=== PATIENT | male | born 1985 | race Two or more races ===

== ENCOUNTER 2021-02-20 01:46 | Inpatient (IN) | payer SELFPAY ==
[~2021-02-20] VITALS: Ht 177.8 cm; Wt 104.8 kg
--- NOTE | 2021-02-20 02:05 | NUR ---
PATIENT BIBRA 89 FROM HOME FOR C/O ABD PAIN AND HEMATURIA. PATIENT IS A/O X 4, RR EVEN AND UNLABORED, NO SOB NOTED. PATIENT CONNECTED TO CARDIAC AND POX MONITOR.
--- NOTE | 2021-02-20 02:25 | NUR ---
at bed side
[2021-02-20] MEDS ORDERED: ONDANSETRON HCL/PF 4 MG/2 ML VIAL IVP ONE (02:30)
[2021-02-20] MEDS ORDERED: IV NS 0.9% 1,000 ML BAG IV ONE (02:30)
[2021-02-20] MEDS ORDERED: MORPHINE SULFATE INJ 2 MG/ML DISP.SYRIN IV ONE (02:30)
[2021-02-20] MEDS ORDERED: MORPHINE SULFATE INJ 4 MG/ML DISP.SYRIN ONE (02:36)
[2021-02-20] MEDS ORDERED: ONDANSETRON HCL/PF 4 MG/2 ML VIAL ONE (02:36)
[2021-02-20 03:07] LABS: BASOPHILS % (AUTO) 0.3 % (0.0-2.0); EOSINOPHILS % (AUTO) 0.7 % (0.0-6.0); HEMATOCRIT 37 % (39-51); HEMOGLOBIN 13.1 g/dL (13.5-17.5); LYMPHOCYTES # (AUTO) 1.7 K/uL (0.8-4.8); LYMPHOCYTES % (AUTO) 23.7 % (20.0-44.0); MEAN CORPUSCULAR HGB CONC 35 g/dl (31.0-36.0); MEAN CORPUSCULAR VOLUME 91 fL (80-96); MONOCYTES # (AUTO) 1.1 K/uL (0.1-1.30); NEUTROPHILS # (AUTO) 4.4 K/uL (1.8-8.9); NEUTROPHILS % (AUTO) 60.3 % (43.0-81.0); PLATELET COUNT (AUTO) 230 K/uL (150-450); RED BLOOD CELL COUNT(AUTO) 4.07 MIL/uL (4.5-6.0); WHITE BLOOD COUNT (AUTO) 7.2 K/uL (4.3-11.0)
[2021-02-20 03:21] LABS: CALCIUM, SERUM 7.7 mg/dL (8.5-10.1); CREATININE 1.1 mg/dL (0.6-1.3); POTASSIUM 2.9 mmol/L (3.5-5.1)
[2021-02-20] MEDS ORDERED: POTASSIUM CHLORIDE 20 MEQ TAB.PRT.SR PO ONE ×2 (03:30→03:36)
[2021-02-20] MEDS ORDERED: POTASSIUM CL. PREMIX PERIPHER. 100 ML ONE (03:36)
[2021-02-20] MEDS: POTASSIUM CL. PREMIX PERIPHER. 50 ML IV SCH ×2 (03:58→04:32)
[2021-02-20] MEDS ORDERED: IOHEXOL-300 100 ML VIAL IV ONE (04:34)
[2021-02-20 04:43] LABS: BILIRUBIN,URINE NEGATIVE (NEGATIVE); COLOR,URINE YELLOW (YELLOW); LEUKOCYTE ESTERASE ,URINE LARGE (NEGATIVE); NITRITE, URINE NEGATIVE (NEGATIVE); PH,URINE 6.5 (5.0-8.0); PROTEIN,URINE NEGATIVE (NEGATIVE); UGLUCOSE NEGATIVE (NEGATIVE)
--- NOTE | 2021-02-20 04:48 | NUR ---
PATIENT TAKEN TO CT
[2021-02-20] MEDS ORDERED: CEFTRIAXONE 1GM BAG (ER ONLY) 1 GM/50 ML PIGGYBACK IV ONE (05:00)
--- NOTE | 2021-02-20 05:30 | NUR ---
BAG 2 OF POTASSIUM GIVEN
[2021-02-20] MEDS ORDERED: CEPH500T PO (06:02)
[2021-02-20 06:27] LABS: BACTERIA,URINE None seen /HPF (None Seen); RBC,URINE 0-2 /HPF (0-2); SQUAMOUS EPITHELIAL CELL,UR None Seen /HPF (None Seen); WBC,URINE TOO NUMEROUS TO COUN /HPF (0-3)
[2021-02-20] MEDS ORDERED: CEFTRIAXONE 1GM BAG (ER ONLY) 50 ML IV ONE (06:49)
[2021-02-20 07:26] LABS: EOSINOPHILS % (MANUAL) 2 % (0-4); LYMPHOCYTES % (MANUAL) 21 % (16-48); MONOCYTES % (MANUAL) 17 % (0-11.0); NEUTROPHILS % (MANUAL) 60 (42-76)
--- NOTE | 2021-02-20 08:02 | NUR ---
MOVE SHEET SUBMITTED.
--- NOTE | 2021-02-20 08:07 | NUR ---
COVID SWAB DONE AND SENT TO LAB
--- NOTE | 2021-02-20 11:31 | NUR ---
REPORT GIVEN TO JAZZ EISENBERG FOR [facility]
--- NOTE | 2021-02-20 12:02 | NUR ---
TRANSFERRED TO ROOM IN STABLE CONDITION
[2021-02-20] MEDS ORDERED: IV NS 0.9% 1,000 ML IV PRN (12:30)
[2021-02-20] MEDS ORDERED: ONDANSETRON HCL/PF 4 MG/2 ML VIAL IVP PRN (12:30)
[2021-02-20] MEDS: MORPHINE SULFATE INJ 2 MG/ML DISP.SYRIN IV PRN ×3 (12:33→22:57)
[2021-02-20 16:00] VITALS: BP 119/80
[2021-02-20] MEDS ORDERED: DIATR MEGLU/DIATRIZOATE SODIUM 120 ML BOTTLE (GASTROGRAPHIN) ONE (16:20)
--- NOTE | 2021-02-20 16:30 | NUR ---
Patient left to radiology for small bowel series in stable condition.
--- NOTE | 2021-02-20 18:42 | NUR ---
RN Closing note Patient in bed and resting, came back from Small bowel series and negative result. Informed Dr. Mcallister and Dr. Sin, received resume regular diet as tolerated. Patient no distress observed, respiratory even and unlabored on room air. Skin is warm to touch, keep clean/dry. Intact IV site. Kept elevated HOB for ensure airway and aspiration precaution, Also lower position of the bed for safety. Call light within reach, all needs met. will endorse mini shifter.
--- NOTE | 2021-02-20 19:30 | NUR ---
MS RN OPENING NOTE RECEIVED PATIENT A/OX4, ABLE TO MAKES NEEDS KNOWN. NO S/S OF APPARENT DISTRESS. PAIN TOLERABLE AT THIS TIME. NO IV FLUIDS RUNNING AT THIS TIME. SAFETY IN PLACE. WILL CONTINUE WITH CARE PLAN.
[2021-02-20 20:00] VITALS: BP 121/74
[2021-02-20 20:05] LABS: BILIRUBIN,URINE NEGATIVE (NEGATIVE); COLOR,URINE YELLOW (YELLOW); LEUKOCYTE ESTERASE ,URINE TRACE (NEGATIVE); NITRITE, URINE NEGATIVE (NEGATIVE); PROTEIN,URINE NEGATIVE (NEGATIVE); UGLUCOSE NEGATIVE (NEGATIVE)
[2021-02-20 20:21] LABS: BACTERIA,URINE RARE /HPF (None Seen); RBC,URINE 21-50 /HPF (0-2); SQUAMOUS EPITHELIAL CELL,UR 0-2 /HPF (None Seen)
[2021-02-21] MEDS ORDERED: CEFTRIAXONE 1 G in IV D5W 50 ML IV SCH (06:00)
--- NOTE | 2021-02-21 07:20 | NUR ---
MS RN OPENING NOTES RECEIVED PATIENT IN BED AWAKE, A/OX4, ABLE TO MAKES NEEDS KNOWN. PATIENT IS ON RA WITH NO S/SX OF APPARENT DISTRESS. R AC #18G INTACT AND PATENT. SAFETY MEASURES IN PLACE: WHEELS OF THE BED ARE LOCKED, BED IS IN LOWEST POSITION, CALL LIGHT WITHIN REACH. WILL CONTINUE TO MONITOR PATIENT.
--- NOTE | 2021-02-21 07:39 | NUR ---
REPORT GIVEN TO [facility] CONTINUITY OF CARE.
[2021-02-21 07:53] LABS: CALCIUM, SERUM 8.3 mg/dL (8.5-10.1); MAGNESIUM 2.3 mg/dL (1.8-2.4); PHOSPHORUS 4.1 mg/dL (2.5-4.9); POTASSIUM 3.4 mmol/L (3.5-5.1)
[2021-02-21] MEDS: MORPHINE SULFATE INJ 2 MG/ML DISP.SYRIN IV PRN (07:53)
[2021-02-21 07:54] LABS: BASOPHILS % (AUTO) 0.8 % (0.0-2.0); EOSINOPHILS % (AUTO) 7.6 % (0.0-6.0); HEMATOCRIT 40 % (39-51); HEMOGLOBIN 13.7 g/dL (13.5-17.5); LYMPHOCYTES # (AUTO) 1.8 K/uL (0.8-4.8); LYMPHOCYTES % (AUTO) 36.8 % (20.0-44.0); MEAN CORPUSCULAR HGB CONC 35 g/dl (31.0-36.0); MEAN CORPUSCULAR VOLUME 92 fL (80-96); MONOCYTES # (AUTO) 0.8 K/uL (0.1-1.30); MONOCYTES % (AUTO) 15.2 % (2.0-12.0); NEUTROPHILS % (AUTO) 39.6 % (43.0-81.0); PLATELET COUNT (AUTO) 247 K/uL (150-450); RED BLOOD CELL COUNT(AUTO) 4.29 MIL/uL (4.5-6.0); WHITE BLOOD COUNT (AUTO) 4.9 K/uL (4.3-11.0)
[2021-02-21 08:39] VITALS: BP 95/48
[2021-02-21] MEDS ORDERED: PANTOPRAZOLE 40 MG VIAL IV SCH (09:00)
[2021-02-21] MEDS ORDERED: POTASSIUM CHLORIDE 20 MEQ TAB.PRT.SR PO SCH (11:00)
--- NOTE | 2021-02-21 14:49 | NUR ---
RN NOTE- DISCHARGED HOME AT THIS TIME. PT GIVEN PRESCRIPTION FOR BACTRIM DS ONE TAB PO BID X 5 DAYS. PT GIVEN INSTRUCTIONS AND REVIEWED. PT UNDERSTANDS. VS STABLE. ALL BELONGINGS COLLECTED. ID [id number] REMOVED. ESCORTED OFF UNIT BY THIS RN.
== END 2021-02-21 14:50 | disposition home or self-care (01) | DRG 389 ==
LOC: ER 01:53 → TRANSITION 10:15 → MED 11:33
DX: K56.609 Unspecified intestinal obstruction, unspecified as to partial versus complete obstruction (principal); N39.0 Urinary tract infection, site not specified; E87.6 Hypokalemia; Z20.822 Contact with and (suspected) exposure to COVID-19; Z90.49 Acquired absence of other specified parts of digestive tract; R31.9 Hematuria, unspecified; Z98.890 Other specified postprocedural states
CPT/HCPCS: 36415; 74250-TC; 80048-TC; 80061-TC; 81001; 83735-TC; 84100-TC; 85025-TC; 85730-TC; 87081-TC; 87086-TC; C9113; G0378; J0696; J2270; J2405; J3480; J7030; J7040; J7060; Q9963; Q9967